=== PATIENT | female | born 1985 | race Two or more races ===

== ENCOUNTER 2016-11-01 14:27 | Emergency (ER) | payer MEDICAID ==
[~2016-11-01] VITALS: Ht 160 cm; Wt 65.8 kg
[2016-11-01 15:30] VITALS: BP 140/98
== END 2016-11-01 16:09 | disposition home or self-care (01) ==
LOC: ER 14:33
DX: L03.011 Cellulitis of right finger (principal)

== ENCOUNTER 2018-01-27 20:54 | Emergency (ER) | payer SELFPAY ==
[~2018-01-27] VITALS: Ht 160 cm; Wt 65.8 kg
[2018-01-27 22:06] LABS: Basophils # (auto) 0 uL; Basophils % (auto) 0.4 % (0.0-2.0); Eosinophils # (auto) 0.2 uL; Hematocrit 41.5 % (36.0-46.0); Hemoglobin 13.7 g/dL (12.2-16.2); Lymphocytes # (auto) 2.8 uL; Lymphocytes % (auto) 35.4 % (10.0-50.0); Mean Corpuscular Hemoglobin 29.6 pg (28.0-32.0); Mean Corpuscular Hgb Conc. 33.1 g/dL (32.0-36.0); Mean Corpuscular Volume 89.3 fL (80.0-100.0); Monocytes # (auto) 0.4 uL; Neutrophils # (auto) 4.5 uL; Neutrophils % (auto) 56.2 % (37.0-80.0); Platelet Count (auto) 293 10^3/uL (140-450); Red Blood Cells 4.64 10^6/uL (4.0-5.20); Red Cell Distribution Width 14.9 % (11.8-14.3)
[2018-01-27 22:18] LABS: Urine Bacteria FEW /hpf (None Seen); Urine Blood 3+ /uL (Negative); Urine Mucus FEW (None Seen); Urine Specific Gravity 1.022 (1.001-1.035); Urine WBC 1 /hpf (0 - 5)
[2018-01-27 22:21] LABS: Albumin 3.7 g/dL (3.4-5.0); Calcium 8.5 mg/dL (8.5-10.1); Potassium 4.2 mmol/L (3.5-5.1)
[2018-01-27 22:25] LABS: Bilirubin, Total 0.2 mg/dL (0.2-1.0); Total Protein 8.2 g/dL (6.4-8.2)
[2018-01-28 01:50] VITALS: BP 117/71
== END 2018-01-28 02:23 | disposition home or self-care (01) ==
LOC: ER 20:54
DX: R10.9 Unspecified abdominal pain (principal); L25.9 Unspecified contact dermatitis, unspecified cause; Z98.890 Other specified postprocedural states
CPT/HCPCS: 36415; 74176; 80053; 81001; 85025; 87040

== ENCOUNTER 2022-01-15 23:32 | Emergency (ER) | payer SELFPAY ==
[~2022-01-15] VITALS: Ht 162.6 cm; Wt 81.0 kg
[2022-01-16 00:12] VITALS: BP 129/83
== END 2022-01-16 07:54 | disposition left against medical advice (07) ==
LOC: ER 23:32
DX: K64.9 Unspecified hemorrhoids (principal); Z53.21 Procedure and treatment not carried out due to patient leaving prior to being seen by health care provider

== ENCOUNTER 2023-01-04 21:05 | Emergency (ER) | payer SELFPAY ==
[~2023-01-04] VITALS: Ht 160 cm; Wt 36.0 kg
[2023-01-04 23:04] LABS: Basophils # (auto) 0 10 ^3/uL (0-0.2); Basophils % (auto) 0.4 % (0.0-2.0); Eosinophils # (auto) 0.2 10 ^3/uL (0-0.8); Eosinophils % (auto) 1.9 % (0.0-7.0); Hemoglobin 13.9 g/dL (12.2-16.2); Lymphocytes # (auto) 3.9 10 ^3/uL (0.4-5.4); Lymphocytes % (auto) 44.3 % (10.0-50.0); Mean Corpuscular Hemoglobin 30.1 pg (28.0-32.0); Mean Corpuscular Hgb Conc. 33.1 g/dL (32.0-36.0); Monocytes # (auto) 0.5 10 ^3/uL (0-1.3); Monocytes % (auto) 5.5 % (0.0-12.0); Neutrophils # (auto) 4.2 10 ^3/uL (1.6-8.6); Neutrophils % (auto) 47.9 % (37.0-80.0); Red Blood Cells 4.61 10^6/uL (4.0-5.20); Red Cell Distribution Width 13.8 % (11.8-14.3); White Blood Cell 8.7 10^3/uL (4.4-10.8)
[2023-01-04 23:22] LABS: Urine Bacteria NONE SEEN /hpf (None Seen); Urine Blood 3+ /uL (Negative); Urine Clarity HAZY (Clear); Urine Color Yellow (Yellow); Urine Mucus FEW (None Seen); Urine Protein, UAD 1+ (Negative); Urine Specific Gravity 1.027 (1.001-1.035); Urine Urobilinogen Normal (Negative); Urine WBC 12 /hpf (0 - 5)
[2023-01-04 23:26] LABS: Alanine Aminotransferase 11 U/L (7-40); Alkaline Phosphatase 98 U/L (46-116); Anion Gap 8 (5-15); Aspartate Aminotransferase 15 U/L (13-40); BUN/Creatinine Ratio 11.1 (10.0-20.0); Blood Urea Nitrogen 10 mg/dL (9-23); Calcium 9.1 mg/dL (8.7-10.4); Carbon Dioxide 25 mmol/L (20-30); Chloride 107 mmol/L (98-107); Glucose 93 mg/dL (74-106); Lipase 63 U/L (12-53); Potassium 3.7 mmol/L (3.5-5.1); Sodium 140 mmol/L (136-145)
[2023-01-04 23:27] LABS: Bilirubin, Total 0.3 mg/dL (0.2-1.0); Total Protein 7.4 g/dL (5.7-8.2)
[2023-01-04 23:38] LABS: Albumin 4.6 g/dL (3.2-4.8)
[2023-01-05] MEDS ORDERED: IBUP-1455 PO (00:44)
[2023-01-05] MEDS ORDERED: PHENSUP38 PR (00:44)
[2023-01-05] MEDS ORDERED: NITR-87 PO (00:44)
[2023-01-05] MEDS ORDERED: NITROFURANTOIN 100 mg CAP PO ONE (00:45)
[2023-01-05 01:55] VITALS: BP 124/78; PULSE 70; RESP 16; TEMP 98; O2SAT 100
== END 2023-01-05 02:01 | disposition home or self-care (01) ==
LOC: ER 21:05
DX: N39.0 Urinary tract infection, site not specified (principal); K64.9 Unspecified hemorrhoids; R10.2 Pelvic and perineal pain
CPT/HCPCS: 36415; 80053; 81001; 83690; 84702; 85025